=== PATIENT | male | born 1990 | race Caucasian/White ===

== ENCOUNTER 2019-10-24 09:13 | Day surgery (SDC) | payer BC ==
[~2019-10-24 09:13] MED LIST: BACTRIM DS1 TAB PO
[2019-10-24] MEDS ORDERED: BACTRIM DS1 TAB PO (12:38)
[2019-10-24] MEDS ORDERED: PERCOCET 5/325M1 TAB PO (12:38)
[2019-10-24 12:47] VITALS: BP 123/78
== END 2019-10-24 12:57 | disposition home or self-care (01) | DRG 572 ==
LOC: ORM 09:13
PROVIDERS: ATTEND Surgery
PROC: 0JB90ZZ Excision of Buttock Subcutaneous Tissue and Fascia, Open Approach (ICD-10-PCS; principal; 2019-10-24)
DX: L05.01 Pilonidal cyst with abscess (principal); Z11.59 Encounter for screening for other viral diseases
CPT/HCPCS: C9290; J0131; J1100

== ENCOUNTER 2020-05-24 11:14 | Emergency (ER) | payer BC ==
[~2020-05-24 11:14] MED LIST changes: +PERCOCET 5/325M1 TAB PO
== END 2020-05-24 11:30 | disposition left against medical advice (07) | DRG 951 ==
LOC: ED 11:14 → LWOBS 11:30
DX: Z53.21 Procedure and treatment not carried out due to patient leaving prior to being seen by health care provider (principal)

== ENCOUNTER 2021-01-27 17:07 | Emergency (ER) | payer BC ==
[~2021-01-27] VITALS: Ht 177.8 cm; Wt 85.0 kg
[2021-01-27] MEDS ORDERED: KEFLEX500 MG PO (18:34)
[2021-01-27 18:42] VITALS: BP 136/88
== END 2021-01-27 18:50 | disposition home or self-care (01) | DRG 605 ==
LOC: ED 17:07
PROC: 0HQGXZZ Repair Left Hand Skin, External Approach (ICD-10-PCS; principal; 2021-01-27)
DX: S61.211A Laceration without foreign body of left index finger without damage to nail, initial encounter (principal); X58.XXXA Exposure to other specified factors, initial encounter